=== PATIENT | male | born 1985 | race Caucasian/White ===

== ENCOUNTER 2021-03-03 08:35 | Emergency (ER) | payer OTHER ==
[~2021-03-03] VITALS: Ht 167 cm; Wt 88.0 kg
[2021-03-03 08:40] VITALS: BP 148/96
[2021-03-03] MEDS ORDERED: CYCL10TA9 PO (08:54)
[2021-03-03] MEDS ORDERED: IBUP-1780 PO (08:54)
--- NOTE | 2021-03-03 08:56 | ED Back Pain ---
General Chief Complaint: Back Problems Stated Complaint: BACK SPASMS/PAIN Nursing Triage Note: LOWER BACK PAIN STARTED FRIDAY. WENT TO [facility] ON FRIDAY AND IS STILL HAVING LOW BACK SPASMS. Source of Information: Patient Exam Limitations: No Limitations History of Present Illness Date Seen by Provider: Mar 03, 2021 Time Seen by Provider: 08:47 Initial Comments 35-year-old male presents with left low back pain for the past 2 days. Denies any injury or trauma or previous history of low back problems. No radiation of pain or weakness of his lower extremities. No loss of bowel or bladder control. Pain is worse with movement and having frequent spasms. Saw chiropractor yesterday with no significant relief. Has been applying ice alternating with heat and try to do some stretches without relief. [place]iting from out of town and getting on a plane today to return home. Uncomfortable and wanting some relief. Allergies and Home Medications Allergies Coded Allergies: No Known Drug Allergies (Unverified , 03/03/21) Home Medications Cyclobenzaprine HCl 10 Mg Tablet, 10 MG PO Q8H PRN for SPASMS Prescribed by: BHAVIN PRITCHARD on 03/03/21 0854 Ibuprofen 800 Mg Tablet, 800 MG PO Q8H PRN for PAIN Prescribed by: BHAVIN PRITCHARD on 03/03/21 0854 Patient Home Medication List Home Medication List Reviewed: Yes Review of Systems Constitutional: No fever, No malaise, No weakness Respiratory: No cough, No short of breath Cardiovascular: No chest pain, No edema, No palpitations Gastrointestinal: No abdominal pain, No constipation, No diarrhea, No nausea, No vomiting Genitourinary: No dysuria, No frequency, No pain Musculoskeletal: back pain; No joint pain, No joint swelling; muscle pain; No muscle weakness, No neck pain Skin: No change in color, No rash Past Mtljagu-Lshdsz-Gnicos Hx Patient Social History Substance use?: No Alcohol Use?: No Pt feels they are or have been: No Physical Exam Vital Signs Vital Signs - First Documented 03/03/21 08:40 Pulse 80 Resp 16 B/P (MAP) 148/96 (113) Pulse Ox 98 O2 Delivery Room Air Capillary Refill : Less Than 3 Seconds Height, Weight, BMI Height: '" Weight: lbs. oz. kg; 31.00 BMI Method: General Appearance: No Apparent Distress, WD/WN Back: Normal Inspection, No CVA Tenderness, No Vertebral Tenderness, Decreased Range of Motion, Muscle Spasm (left lower lumbar paraspinal ms- with moderate spasm); No Vertebral Tenderness Extremity: Normal Capillary Refill, Normal Inspection, Non Tender, No Calf Tenderness, No Pedal Edema Neurologic/Psychiatric: Alert, Oriented x3, No Motor/Sensory Deficits, Normal Mood/Affect Skin: Normal Color, Warm/Dry Progress/Results/Core Measures Results/Orders My Orders Orders - BHVAIN PRITCHARD DO Ketorolac Injection (Toradol Injection) (03/03/21 09:00) Vital Signs/I&O 03/03/21 08:40 Pulse 80 Resp 16 B/P (MAP) 148/96 (113) Pulse Ox 98 O2 Delivery Room Air Blood Pressure Mean: 113 Departure Impression Primary Impression: Lumbar strain Qualified Codes: S39.012A - Strain of muscle, fascia and tendon of lower back, initial encounter Disposition: 01 HOME, SELF-CARE Condition: Stable Departure-Patient Inst. Decision time for Depature: 08:53 Referrals: NO,LOCAL PHYSICIAN (PCP/Family) Primary Care Physician Patient Instructions: Back Muscle Strain (DC) Add. Discharge Instructions: Apply heat to your back daily Gently massage and low back stretching daily Consider purchasing a TENS unit if pain continues beyond a couple days. See your PCP when you return home, to consider physical therapy evaluation All discharge instructions reviewed with patient and/or family. Voiced understanding. Scripts Ibuprofen (Ibuprofen) 800 Mg Tablet 800 MG PO Q8H PRN for PAIN, #30 TAB 0 Refills Prov: BHAVIN PRITCHARD DO 03/03/21 Cyclobenzaprine HCl (Cyclobenzaprine HCl) 10 Mg Tablet 10 MG PO Q8H PRN for SPASMS, #21 TAB 0 Refills Prov: MANSOORVENSTINEBHAVIN L DO 03/03/21 BHAVIN PRITCHARD DO Mar 03, 2021 08:56
[2021-03-03] MEDS ORDERED: KETOROLAC 60 MG/2 ML VIAL IM ONE (09:00)
[2021-03-03] MEDS ORDERED: CROTALIDAE Antivenin, OVINE (CROFAB) VIAL ONE (09:21)
== END 2021-03-03 09:03 | disposition home or self-care (01) ==
LOC: ER FS 08:38
DX: S39.012A Strain of muscle, fascia and tendon of lower back, initial encounter (principal); X58.XXXA Exposure to other specified factors, initial encounter
CPT/HCPCS: 99281